=== PATIENT | female | born 1995 | race Caucasian/White ===

== ENCOUNTER → 2020-03-06 | Outpatient (CLI) | payer BC | LOC: M LABSMTC 14:05 | PROVIDERS: ATTEND Family Medicine | DX: Z20.822 Contact with and (suspected) exposure to COVID-19 (principal) ==

== ENCOUNTER → 2020-08-17 | Outpatient (CLI) | payer BC ==
[2020-08-17 18:10] LABS: PROGESTERONE 8.63 NG/ML
== END ==
LOC: M LAB 16:48
DX: N91.2 Amenorrhea, unspecified (principal)

== ENCOUNTER → 2020-08-21 | Outpatient (CLI) | payer BC | LOC: M LAB 16:55 | DX: N91.2 Amenorrhea, unspecified (principal) ==

== ENCOUNTER → 2020-08-23 | Outpatient (CLI) | payer BC | LOC: M LAB 16:43 | DX: N97.0 Female infertility associated with anovulation (principal) ==

== ENCOUNTER → 2020-09-14 | Outpatient (CLI) | payer BC | LOC: M LAB 07:51 | PROVIDERS: ATTEND Specialist | DX: N91.2 Amenorrhea, unspecified (principal) ==

== ENCOUNTER 2020-09-28 08:40 | Emergency (ER) | payer BC ==
[~2020-09-28] VITALS: Ht 170.2 cm; Wt 101.0 kg
[2020-09-28] MEDS ORDERED: PROG1CAP9 PO (08:46)
[2020-09-28] MEDS ORDERED: LIDOCAINE 1% MDV 20ML VIAL INFIL ONE (09:55)
[2020-09-28] MEDS ORDERED: ACETAMINOPHEN 500 MG TAB PO ONE (11:25)
--- NOTE | 2020-09-28 11:53 | REP ---
INDICATION: unable to get heart tones in ED, 11wks . COMPARISON: None. TECHNIQUE: Real-time sonographic evaluation of gravid uterus performed. FINDINGS: There is a single living intrauterine gestation. The estimated gestational age is 11 weeks 1 day based on a crown-rump length of 44 mm, EDC 04/18/2021. heart rate is 160 beats per minute. No subchorionic hemorrhage is seen. IMPRESSION: Viable intrauterine gestation as discussed above. <Electronically signed by Michael Ibarra > 09/28/20 [id number]
[2020-09-28] MEDS ORDERED: CEPH500T PO (12:31)
[2020-09-28 12:38] VITALS: BP 135/86
== END 2020-09-28 12:40 | disposition home or self-care (01) ==
LOC: M ED 08:40
DX: L05.91 Pilonidal cyst without abscess (principal); Z3A.11 11 weeks gestation of pregnancy

== ENCOUNTER 2020-09-30 08:45 | Emergency (ER) | payer BC ==
[~2020-09-30] VITALS: Ht 170.2 cm; Wt 101.9 kg
[~2020-09-30 08:45] MED LIST: CEPH500T PO; PROG1CAP9 PO
[2020-09-30] MEDS ORDERED: ACETAMINOPHEN 325 MG TAB PO ONE (09:35)
[2020-09-30] MEDS ORDERED: LIDOCAINE W/EPINEPHRINE 1% 20ML VIAL SC ONE (09:45)
[2020-09-30] MEDS ORDERED: K-TA10TA2 PO (10:39)
[2020-09-30 10:44] LABS: BASO # 0.1 10^3/uL (0.0-0.2); BASO % 0.3 % (0.0-1.0); EOS # 0.2 10^3/uL (0.0-0.5); EOS % 0.8 % (0.0-3.0); HEMATOCRIT 39.2 % (36.0-47.0); HEMOGLOBIN 13.7 g/dl (12.0-15.5); LYMPH # 2.2 10^3/uL (1.5-5.0); LYMPH % 11.1 % (24.0-44.0); MEAN CORPUSCULAR HEMOGLOBIN 30.2 pg (27.0-33.0); MEAN CORPUSCULAR HGB CONC 34.9 g/dl (32.0-36.5); MEAN CORPUSCULAR VOLUME 86.3 fl (80.0-96.0); MONO # 1.2 10^3/uL (0.0-0.8); NEUTROPHILS # 16.3 10^3/uL (1.5-8.5); NEUTROPHILS % 81.3 % (36.0-66.0); PLATELET COUNT, AUTOMATED 349 10^3/uL (150-450); RED BLOOD COUNT 4.54 10^6/uL (4.00-5.40)
[2020-09-30 10:51] VITALS: BP 133/76
[2020-09-30] MEDS ORDERED: AUGM875T28 PO (11:02)
== END 2020-09-30 10:52 | disposition home or self-care (01) ==
LOC: M ED 08:45
DX: L05.91 Pilonidal cyst without abscess (principal); Z3A.11 11 weeks gestation of pregnancy

== ENCOUNTER 2020-11-28 20:55 | Outpatient (CLI) | payer BC ==
[~2020-11-28] VITALS: Ht 170.2 cm; Wt 103.8 kg
[~2020-11-28 20:55] MED LIST changes: +AUGM875T28 PO; +K-TA10TA2 PO
[2020-11-28 21:17] VITALS: BP 155/80
[2020-11-28] MEDS ORDERED: HOME MED LIST COMPLETE! XX SCH (21:35)
[2020-11-28 21:36] VITALS: BP 141/76
[2020-11-28] MEDS ORDERED: PRENTAB9 PO (21:38)
[2020-11-28 21:40] VITALS: BP 155/80
== END 2020-11-28 22:05 | disposition home or self-care (01) ==
LOC: M LDO 20:55
PROVIDERS: ATTEND Advanced Practice Midwife
DX: O26.892 Other specified pregnancy related conditions, second trimester (principal); R03.0 Elevated blood-pressure reading, without diagnosis of hypertension; Z3A.19 19 weeks gestation of pregnancy
CPT/HCPCS: G0378; G0463

== ENCOUNTER → 2020-12-10 | Outpatient (CLI) | payer BC ==
[~2020-12-10] MED LIST changes: +PRENTAB9 PO
[2020-12-10 16:25] LABS: HEMATOCRIT 36.8 % (36.0-47.0); HEMOGLOBIN 12.3 g/dl (12.0-15.5); MEAN CORPUSCULAR HGB CONC 33.4 g/dl (32.0-36.5); MEAN CORPUSCULAR VOLUME 86.8 fl (80.0-96.0); PLATELET COUNT, AUTOMATED 372 10^3/uL (150-450); RED BLOOD COUNT 4.24 10^6/uL (4.00-5.40); WHITE BLOOD COUNT 17.7 10^3/uL (4.0-10.0)
[2020-12-10 17:06] LABS: CREATININE,RANDOM URINE 74.6 MG/DL; TOTAL PROTEIN,RANDOM URINE 29.1 MG/DL (0.0-12.0)
[2020-12-10 17:11] LABS: ALT/SGPT 17 U/L (12-78); BILIRUBIN,TOTAL 0.2 MG/DL (0.2-1.0); CREATININE FOR GFR 0.53 MG/DL (0.55-1.30); GLOMERULAR FILTRATION RATE > 60.0 (>60); LDH LACTATE DEHYDROGENASE 162 U/L (84-246); URIC ACID 4.7 MG/DL (2.6-6.0)
== END ==
LOC: M PLALAB 13:51
PROVIDERS: ATTEND Advanced Practice Midwife
DX: Z34.02 Encounter for supervision of normal first pregnancy, second trimester (principal)

== ENCOUNTER → 2020-12-10 | Outpatient (REF) | payer BC | LOC: M PLALAB 13:34 | PROVIDERS: ATTEND Advanced Practice Midwife | DX: Z34.02 Encounter for supervision of normal first pregnancy, second trimester (principal) ==

== ENCOUNTER → 2021-01-09 | Outpatient (REF) | payer BC | LOC: M LAB REF 15:44 | PROVIDERS: ATTEND Nurse Practitioner Family | DX: J00 Acute nasopharyngitis [common cold] (principal) ==

== ENCOUNTER → 2021-01-22 | Outpatient (CLI) | payer BC, MEDICAID ==
[~2021-01-22] MED LIST changes: +ACET-683 PO; +ACET-907 PO; +FIOR1CAP PO; +IBUP80TA PO; +LABE100T4 PO; +LEXA1TAB PO; +TUMS750C5 PO
[2021-01-22 13:27] LABS: HEMATOCRIT 35.3 % (36.0-47.0); HEMOGLOBIN 11.5 g/dl (12.0-15.5); MEAN CORPUSCULAR HEMOGLOBIN 29.1 pg (27.0-33.0); MEAN CORPUSCULAR HGB CONC 32.6 g/dl (32.0-36.5); MEAN CORPUSCULAR VOLUME 89.4 fl (80.0-96.0); PLATELET COUNT, AUTOMATED 387 10^3/uL (150-450); RED BLOOD COUNT 3.95 10^6/uL (4.00-5.40); WHITE BLOOD COUNT 17.9 10^3/uL (4.0-10.0)
== END ==
LOC: M PLALAB 10:52
PROVIDERS: ATTEND Obstetrics & Gynecology
DX: O10.912 Unspecified pre-existing hypertension complicating pregnancy, second trimester (principal)

== ENCOUNTER 2021-02-21 13:14 | Outpatient (RCR) | payer BC, MEDICAID ==
[~2021-02-21 13:14] MED LIST changes: -ACET-683 PO; -ACET-907 PO; -FIOR1CAP PO; -IBUP80TA PO; -LABE100T4 PO; -LEXA1TAB PO; -TUMS750C5 PO
== END 2021-02-22 ==
LOC: M PT 13:14
PROVIDERS: ATTEND Obstetrics & Gynecology
DX: O26.899 Other specified pregnancy related conditions, unspecified trimester (principal); M25.559 Pain in unspecified hip; Z3A.00 Weeks of gestation of pregnancy not specified

== ENCOUNTER 2021-03-12 09:15 | Outpatient (RCR) | payer BC, MEDICAID | END 2021-03-25 | LOC: M PT 09:15 | PROVIDERS: ATTEND Obstetrics & Gynecology | DX: M25.559 Pain in unspecified hip (principal) ==

== ENCOUNTER 2021-03-14 09:15 | Outpatient (CLI) | payer BC, MEDICAID ==
[~2021-03-14] VITALS: Ht 157.5 cm; Wt 112.9 kg
[2021-03-14 09:35] VITALS: BP 134/74
[2021-03-14] MEDS ORDERED: BETAMETHASONE SOLUSPAN 6MG/ML 5ML VIAL (J0702 PER 3MG) IM ONE (09:50)
[2021-03-28] MEDS ORDERED: ACET-907 PO (10:41)
[2021-03-28] MEDS ORDERED: TUMS750C5 PO (10:41)
[2021-04-01] MEDS ORDERED: LABE100T4 PO (11:41)
[2021-04-01] MEDS ORDERED: ACET-683 PO (11:41)
[2021-04-01] MEDS ORDERED: IBUP80TA PO (11:41)
[2021-04-01] MEDS ORDERED: LEXA1TAB PO (11:54)
== END 2021-03-14 10:20 | disposition home or self-care (01) ==
LOC: M LDO 09:15
PROVIDERS: ATTEND Obstetrics & Gynecology
DX: O41.03X9 Oligohydramnios, third trimester, other fetus (principal); Z3A.35 35 weeks gestation of pregnancy
CPT/HCPCS: 59025; 96372; G0378; G0463; J0702

== ENCOUNTER → 2021-03-14 | Outpatient (REF) | payer BC, MEDICAID | LOC: M SFHCWAGY 14:51 | PROVIDERS: ATTEND Obstetrics & Gynecology | DX: O41.00X0 Oligohydramnios, unspecified trimester, not applicable or unspecified (principal) ==

== ENCOUNTER 2021-03-15 09:58 | Outpatient (CLI) | payer BC, MEDICAID ==
[~2021-03-15] VITALS: Ht 170.2 cm; Wt 114.1 kg
[2021-03-15] MEDS ORDERED: BETAMETHASONE SOLUSPAN 6MG/ML 5ML VIAL (J0702 PER 3MG) IM ONE (10:30)
[2021-03-15 10:48] VITALS: BP 138/83
== END 2021-03-15 10:35 | disposition home or self-care (01) ==
LOC: M LDO 09:58
PROVIDERS: ATTEND Obstetrics & Gynecology
DX: O10.03 Pre-existing essential hypertension complicating the puerperium (principal); O41.03X9 Oligohydramnios, third trimester, other fetus; Z3A.35 35 weeks gestation of pregnancy
CPT/HCPCS: 96372; G0378; J0702

== ENCOUNTER → 2021-03-25 | Outpatient (CLI) | payer BC, MEDICAID ==
[~2021-03-25] MED LIST changes: +ACET-683 PO; +ACET-907 PO; +FIOR1CAP PO; +IBUP80TA PO; +LABE100T4 PO; +LEXA1TAB PO; +TUMS750C5 PO
== END ==
LOC: M WHC 08:42
PROVIDERS: ATTEND Obstetrics & Gynecology
DX: O10.013 Pre-existing essential hypertension complicating pregnancy, third trimester (principal); Z3A.35 35 weeks gestation of pregnancy; Z36.2 Encounter for other antenatal screening follow-up

== ENCOUNTER 2021-04-03 16:52 | Emergency (ER) | payer BC, MEDICAID ==
[~2021-04-03] VITALS: Ht 170.2 cm; Wt 107.1 kg
[~2021-04-03 16:52] MED LIST changes: -FIOR1CAP PO
[2021-04-03] MEDS ORDERED: KETOROLAC 30 MG/ML 1ML VIAL IV ONE (20:25)
[2021-04-03] MEDS ORDERED: ONDANSETRON 4MG/2ML VIAL IV ONE (20:25)
[2021-04-03] MEDS ORDERED: NS 1,000 ML IV ONE (20:25)
[2021-04-03 20:59] VITALS: BP 138/77
[2021-04-03 21:37] LABS: BASO # 0.1 10^3/uL (0.0-0.2); BASO % 0.4 % (0.0-1.0); EOS # 0.5 10^3/uL (0.0-0.5); EOS % 3.2 % (0.0-3.0); HEMATOCRIT 34.3 % (36.0-47.0); HEMOGLOBIN 11.1 g/dl (12.0-15.5); LYMPH # 2.8 10^3/uL (1.5-5.0); LYMPH % 19.4 % (24.0-44.0); MEAN CORPUSCULAR HEMOGLOBIN 28.2 pg (27.0-33.0); MEAN CORPUSCULAR HGB CONC 32.4 g/dl (32.0-36.5); MEAN CORPUSCULAR VOLUME 87.3 fl (80.0-96.0); MONO # 0.9 10^3/uL (0.0-0.8); NEUTROPHILS % 70.2 % (36.0-66.0); PLATELET COUNT, AUTOMATED 488 10^3/uL (150-450); RED BLOOD COUNT 3.93 10^6/uL (4.00-5.40); WHITE BLOOD COUNT 14.3 10^3/uL (4.0-10.0)
[2021-04-03] MEDS ORDERED: LABETALOL 100MG TAB PO ONE (22:00)
[2021-04-03] MEDS ORDERED: FIOR1CAP PO (23:48)
[2021-04-03] MEDS ORDERED: FIORICET TAB PO ONE (23:55)
== END 2021-04-04 00:17 | disposition home or self-care (01) ==
LOC: M ED 16:52
DX: O89.4 Spinal and epidural anesthesia-induced headache during the puerperium (principal); Z79.899 Other long term (current) drug therapy
CPT/HCPCS: 70450; 80047; 85025; 96361; 96374; 96375; 99284; J1885; J2405

== ENCOUNTER → 2021-04-04 | Outpatient (CLI) | payer BC, MEDICAID ==
[~2021-04-04] MED LIST changes: +FIOR1CAP PO
[2021-04-04 16:45] VITALS: BP 141/74
== END ==
LOC: EDSTATUS 10:25 → M OPP 15:25
PROVIDERS: ATTEND Anesthesiology
DX: O89.4 Spinal and epidural anesthesia-induced headache during the puerperium (principal); Z3A.00 Weeks of gestation of pregnancy not specified

== ENCOUNTER → 2021-05-16 | Outpatient (REF) | payer OTHER | LOC: M PLALAB 14:04 | PROVIDERS: ATTEND Advanced Practice Midwife | DX: R30.0 Dysuria (principal) ==

== ENCOUNTER → 2021-10-17 | Outpatient (REF) | payer MEDICAID, OTHER ==
[~2021-10-17] MED LIST changes: -LABE100T4 PO; +LABE100T6 PO
== END ==
LOC: M PLALAB 14:10
PROVIDERS: ATTEND Advanced Practice Midwife
DX: Z12.4 Encounter for screening for malignant neoplasm of cervix (principal)

== ENCOUNTER 2023-06-08 11:31 | Day surgery (SDC) | payer OTHER ==
[~2023-06-08] VITALS: Ht 170.2 cm; Wt 96.5 kg
[~2023-06-08 11:31] MED LIST changes: -K-TA10TA2 PO; +POTA-165 PO
[2023-06-08] MEDS ORDERED: propofoL 200 MG/20 ML VIAL As Ordered ONE (11:58)
[2023-06-08] MEDS ORDERED: LIDOCAINE 2% 100MG/5ML SDV (FOR ANES.) As Ordered ONE (11:58)
[2023-06-08] MEDS ORDERED: ONDANSETRON 4MG 2ML VIAL As Ordered ONE (11:58)
[2023-06-08] MEDS ORDERED: KETOROLAC 60MG 2ML VIAL As Ordered ONE (11:58)
[2023-06-08] MEDS ORDERED: fentaNYL 100 MCG/2 ML INJECTION As Ordered ONE (12:01)
[2023-06-08] MEDS ORDERED: MIDAZOLAM INJ 2MG/2ML VIAL As Ordered ONE (12:01)
[2023-06-08] MEDS ORDERED: KETO2SHA8 (12:34)
[2023-06-08] MEDS ORDERED: KETO2CR (12:34)
[2023-06-08] MEDS ORDERED: LR 1,000 ML IV SCH ×2 (12:45→14:00)
[2023-06-08] MEDS ORDERED: ACETAMINOPHEN 1000MG 100ML IV BAG As Ordered ONE (12:59)
[2023-06-08] MEDS ORDERED: oxyCODONE 5MG TAB PO PRN (14:00)
[2023-06-08] MEDS ORDERED: HYDROMORPHONE HCL 0.5 MG/ 0.5 ML SYRINGE IV PRN (14:00)
[2023-06-08] MEDS ORDERED: fentaNYL 100 MCG/2 ML INJECTION IV PRN (14:00)
[2023-06-08] MEDS: ONDANSETRON 4MG 2ML VIAL IV PRN (14:43)
[2023-06-08 15:00] VITALS: BP 124/76; TEMP 97.5; O2SAT 100
== END 2023-06-08 15:55 | disposition home or self-care (01) ==
LOC: M SDC 11:31
PROVIDERS: ATTEND Surgery
DX: L05.91 Pilonidal cyst without abscess (principal); F17.210 Nicotine dependence, cigarettes, uncomplicated; Z90.49 Acquired absence of other specified parts of digestive tract
CPT/HCPCS: 11771; 81025; 88304; J0131; J1100; J1885; J2250; J2405; J3010

== ENCOUNTER → 2023-07-29 | Outpatient (REF) | payer OTHER ==
[~2023-07-29] MED LIST changes: +KETO2CR; +KETO2SHA8
[2023-07-29 16:34] LABS: Trichomonas vaginalis (AMP) NOT DETECTED (NEGATIVE)
[2023-07-29 16:58] LABS: GC DNA AMPLIFICATION NEGATIVE (NEGATIVE)
== END ==
LOC: M PLALAB 14:05
PROVIDERS: ATTEND Advanced Practice Midwife
DX: Z01.419 Encounter for gynecological examination (general) (routine) without abnormal findings (principal); Z11.3 Encounter for screening for infections with a predominantly sexual mode of transmission